=== PATIENT | female | born 1975 | race Caucasian/White ===

== ENCOUNTER 2019-04-28 16:57 | Emergency (ER) | payer OTHER ==
[~2019-04-28] VITALS: Ht 154.9 cm; Wt 68.0 kg
[2019-04-28 17:01] VITALS: Ht 154.9 cm; Wt 68.0 kg
[2019-04-28 20:57] VITALS: BP 135/73
== END 2019-04-28 20:57 | disposition home or self-care (01) ==
LOC: ED 16:57
DX: M54.6 Pain in thoracic spine (principal); G89.29 Other chronic pain; Z88.8 Allergy status to other drugs, medicaments and biological substances
CPT/HCPCS: 72072; J1885; J3010; J7030